=== PATIENT | male | born 1960 | race African-American/Black ===

== ENCOUNTER 2020-04-25 08:39 | Emergency (ER) | payer OTHER ==
[2020-04-25 08:50] VITALS: BP 135/81; PULSE 93; TEMP 99; BMI 19.3
--- NOTE | 2020-04-25 09:00 | PDOC ---
History of Present Illness - General Chief Complaint: Head/Neck problem Stated Complaint: HEAD INJURY History Source: Patient Exam Limitations: No Limitations - History of Present Illness Initial Comments: 04/25/20 09:16 59 yo M with no past medical history presents to the emergency department with headache that has been ongoing for 3 weeks. 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 He felt lightheaded afterwards, but denied having LOC and nausea. Since then, he has had a persistent, dull, 6/10 constant headache that is located on the superior portion of the head with minimal relief achieved with tylenol and ibuprofen. The patient denies the following: ataxia, FND, visual disturbances, nausea, ears/nose/throat pain, abdominal pain, dysuria, hematuria, diarrhea, and leg pain/swelling. Past History - Medical History Allergies/Adverse Reactions: Allergies Allergy/AdvReac Type Severity Reaction Status Date / Time No Known Allergies Allergy Verified 04/25/20 08:44 Home Medications: Ambulatory Orders NK [No Known Home Medication] 04/25/20 COPD: Yes - Psycho-Social/Smoking History Smoking History: Current some day smoker Number of Cigarettes Smoked Daily: 10 Information on smoking cessation initiated: Yes - Substance Abuse Hx (Audit-C & DAST Scrn) How often the patient has a drink containing alcohol: Never Score: In Men: 4 or > Positive; In Women: 3 or > Positive: 0 Screen Result (Pos requires Nsg. Audit-10AR): Negative In the last yr the pt used illegal drug/Rx for NonMed reason: No Score: Yes response is considered Positive: 0 Screen Result (Positive result requires Nsg. DAST-10): Negative Review of Systems - Review of Systems Able to Perform ROS?: Yes Is the patient limited Romansh proficient: No Constitutional: No: Chills, Diaphoresis, Weakness HEENTM: No: Eye Pain, Ear Pain, Nose Pain, Throat Pain Respiratory: No: Cough, Shortness of Breath Cardiac (ROS): Yes: Lightheadedness. No: Chest Pain ABD/GI: No: Constipated, Diarrhea, Nausea, Rectal Bleeding, Vomiting, Tarry Stools : No: Burning, Dysuria, Hematuria Musculoskeletal: No: Back Pain, Joint Pain, Neck Pain Integumentary: No: Bruising, Rash Neurological: Yes: Headache. No: Numbness, Tingling, Tremors, Ataxia, Dizziness Psychiatric: No: Change in Appetite Endocrine: No: Unexplained Weight Loss Hematologic/Lymphatic: No: Anemia *Physical Exam - Vital Signs Last Vital Signs Temp Pulse Resp BP Pulse Ox 99 F 93 H 18 135/81 99 04/25/20 08:45 04/25/20 08:45 04/25/20 08:45 04/25/20 08:45 04/25/20 08:45 - Physical Exam General Appearance: Yes: Nourished, Appropriately Dressed. No: Apparent Distr ess, Intoxicated HEENT: positive: EOMI, RENO, Normal ENT Inspection, Normal Voice, Symmetrical, TMs Normal, Pharynx Normal, Hearing Grossly Normal, Other (no patiño sign, no r accoon eyes, no hemotympanum). negative: Pale Conjunctivae, Scleral Icterus (R), Scleral Icterus (L), Muffled/Hoarse voice, Pharyngeal Erythema, Tonsillar Exudate, Tonsillar Erythema, Nasal Congestion, Rhinorrhea, Sinus Tenderness, Excessive drooling Neck: positive: Trachea midline, Supple. negative: Tender, Lymphadenopathy (R), Lymphadenopathy (L) Respiratory/Chest: positive: Lungs Clear, Normal Breath Sounds. negative: Chest Tender, Respiratory Distress, Accessory Muscle Use, Crackles, Rales, Rhonchi, Stridor, Wheezing Cardiovascular: positive: Regular Rhythm, Regular Rate, S1, S2. negative: Systolic Murmur Gastrointestinal/Abdominal: positive: Normal Bowel Sounds, Flat, Soft. negativ e: Tender, Distended, Guarding, Rebound Lymphatic: negative: Adenopathy Musculoskeletal: positive: Normal Inspection. negative: CVA Tenderness, Verte bral Tenderness Extremity: positive: Normal Capillary Refill, Normal Inspection, Normal Range of Motion. 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 ). negative: Sensory Deficit Medical Decision Making - Medical Decision Making 59 yo M with no past medical history presents to the emergency department with headache that has been ongoing for 3 weeks. 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 Initial vitals: Initial Vital Signs Temp Pulse Resp BP Pulse Ox 99 F 93 H 18 135/81 99 04/25/20 08:45 04/25/20 08:45 04/25/20 08:45 04/25/20 08:45 04/25/20 08:45 Work up: ddx: SDH vs SAH vs skull fracture vs epidural hematoma vs concussion (post concussive headache) Patient has fully intact ROM of the neck without tenderness to palpation along the vertebral spine. No ecchymosis or step offs noted Will obtain head CT and provide tylenol. Very low suspicion for SAH given the patient denies worsening headache or "worst headache of life" and denies seizure like activity. no evidence of intracranial acute pathology on the head ct. Patient had significant relief of pain with the tylenol. Likely the patient is having a post-concussive headache. Patient was given strict return precautions and verbal instructions on how to return to normal activity. Patient understood the plan and accepted it. Dispo: Discharge Discharge - Discharge Information Problems reviewed: Yes Clinical Impression/Diagnosis: Concussion Condition: Good Disposition: HOME - Admission No - Follow up/Referral Referrals: [facility] [place] [facility] [place] [Provider Group] - Patient Discharge Instructions Patient Printed Discharge Instructions: DI for Concussion, Concussion, Postconcussion Syndrome, DI for Postconcussion Syndrome, The Cumulative Effects of Concussions Additional Instructions: You were seen in the emergency department for the evaluation of your headache. Your CT was negative for acute bleeding. You likely have a concussion. It is important you read the documentation included in the packet regarding this. Please take a graduated approach to returning to work. Please limit the tv time amount, working, difficult mental processes. Please return to the emergency department if you have worsening symptoms such as weakness on one side vs the other. Please see the primary medical doctor within 1 week after discharge. Thank you. - Post Discharge Activity Work/Back to School Note: Back to Work
[2020-04-25] MEDS ORDERED: ACETAMINOPHEN 325 MG TABLET (FP) PO ONE (09:28)
[2020-04-25] MEDS ORDERED: ACETAMINOPHEN 325 MG TABLET (FP) ONE (09:36)
== END 2020-04-25 11:02 | disposition home or self-care (01) ==
LOC: JER 08:39
DX: S06.0X0A Concussion without loss of consciousness, initial encounter (principal)
CPT/HCPCS: 70450-TC; 99284-25